=== PATIENT | male | born 1960 | race Caucasian/White ===

== ENCOUNTER 2020-04-10 13:59 | Emergency (ER) | payer OTHER, SELFPAY ==
--- NOTE | ~2020-04-10 | CT_ITS ---
EXAMINATION: CT abdomen pelvis wo con DATE: 04/10/2020 14:44 INDICATION: Left flank pain. History of renal stones. Aortic aneurysm. TECHNIQUE: Computed tomography (CT) of the abdomen and pelvis was performed without intravenous contr ast. The dose-length product was 353.52 mGy-cm. Automated exposure control and iterative reconstructi on technique were employed. COMPARISON: CT dated 08/12/2007 FINDINGS: Lung bases are unremarkable. No significant pleural or pericardial effusion. Elevated left diaphragm. There is a 6 mm proximal left ureteral stone with hydronephrosis and prominent perinephric and periur eteral edema, consistent with obstruction. There are small 2-3 mm nonobstructing left renal stones. The liver, spleen, pancreas, adrenal glands and right kidney are unremarkable. Gallbladder is present . Nonobstructive bowel gas pattern. There is an aortic aneurysm measuring 6.2 cm AP dimension with en dovascular stent extending above and below the aneurysm. Distal aspect of the stent extends into the common iliac arteries. Bowel gas pattern is nonobstructive. No abnormal pelvic masses or fluid collections. Colonic divertic ulosis without evidence for diverticulitis. IMPRESSION: 1. Proximal left ureteral stone measuring 6 mm with associated hydronephrosis, perinephric/periureter al edema, consistent with obstruction. 2: Nonobstructing left nephrolithiasis. 3: Infrarenal abdominal aortic aneurysm measuring 6.2 cm with endovascular stent traversing the aneur ysm above and below. Reviewed, dictated and finalized at location A. IMPRESSION: 1. Proximal left ureteral stone measuring 6 mm with associated hydronephrosis, perinephric/periureteral edema, consistent with obstruction. 2: Nonobstructing left nephrolithiasis. 3: Infrarenal abdominal aortic aneurysm measuring 6.2 cm with endovascular sten t traversing the aneurysm above and below.
--- NOTE | 2020-04-10 14:16 | ECG_ITS ---
Measurements Intervals [place] Rate: 74 P: 56 MO: 176 QRS: 39 QRSD: 104 T: 64 QT: 381 QTc: 424 Interpretive Statements SINUS RHYTHM BASELINE ARTIFACT- I, II, III, AVR, AVL, AVF NORMAL ECG Electronically Signed On 04-10-2020 17:47:32 CDT by Omari Hubbard D.O.
[2020-04-10] MEDS: KETOROLAC 30 MG/ML VIAL (*BKC) IV PUSH (14:26)
[2020-04-10] MEDS: SODIUM CHLORIDE 0.9% IV 1,000 ML 999 ML IV CONT (14:27)
[2020-04-10] MEDS: ONDANSETRON INJ 4 MG/2 ML VIAL IV PUSH (14:27)
[2020-04-10 14:31] VITALS: BP 142/86; PULSE 86; RESP 16; TEMP 36.8; O2SAT 99
[2020-04-10 14:33] LABS: Add Urine Microscopic? YES; Appearance Urine Sl Cloudy (Clear); Bilirubin Urine 1+ (Negative); Blood Urine 2+ (Negative); Color Urine Yellow (Yellow); Glucose Urine UA Negative (Negative); Ketones Urine Trace (Negative); Leukocyte Esterase Ur 1+ (Negative); Nitrate Urine Negative (Negative); Protein Urine 1+ (Negative); Specific Grav Ur 1.025 (1.010-1.020); Urobilinogen Urine 0.2 mg/dL (0.2-1.0); pH Urine 5.5 (5.0-8.0)
[2020-04-10 14:39] LABS: Bacteria Urine 1+ /hpf; Mucus Urine Few /lpf; Squamous Epithelial Cell Urine Few /hpf (Few); WBC Urine 16-20 /hpf (0-3)
--- NOTE | 2020-04-10 14:50 | ED.UPPEXIN ---
HPI - Extremity Injury (Upper) General Chief Complaint: Urogenital-Male Stated Complaint: abd pain L side Source: patient Mode of arrival: ambulatory Limitations: no limitations History of Present Illness HPI narrative: This is a 59-year-old gentleman presents to our emergency department with some left lower flank pain radiating to his left lower abdomen with decreased urinary flow, pain started around 2 in the morning intensified prior to arriving to the emergency department and rating his pain at a 10/10, currently there is no fever or chills, no chest pain no shortness of breath, currently no nausea vomiting no diarrhea constipation. The patient has a history of kidney stones in the past and was treated by urology group at [facility]. Patient also has a history of hypertension, history of AAA. MD complaint: injury to: left Onset (ago): hour(s) Related Data Home Medications Medication Instructions Recorded Confirmed apremilast [Otezla] 30 mg PO DAILY 04/10/20 04/10/20 calcipotriene 1 applic TOPICAL DAILY 04/10/20 04/10/20 clobetasol 1 applic TOPICAL DAILY 04/10/20 04/10/20 hydrochlorothiazide 25 mg PO DAILY 04/10/20 04/10/20 ketoconazole 1 applic TOPICAL DAILY 04/10/20 04/10/20 triamcinolone acetonide 1 applic TOPICAL DAILY 04/10/20 04/10/20 Allergies Allergy/AdvReac Type Severity Reaction Status Date / Time No Known Allergies Allergy Unknown Unverified 08/17/14 17:32 Review of Systems Review of Systems: All systems reviewed & are unremarkable except as noted in HPI and below PMFSH Past Medical History Medical History History of kidney stones HTN (hypertension) Psoriasis Exam Const: General: no acute distress and alert Orientation/consciousness: patient oriented x3 HENMT: Head: normal to inspection Eyes: Conjunctivae: conjunctivae normal Pupils: Equal, round and reactive pupils present Neck: Neck: normal visual inspection, no lymphadenopathy and no meningeal signs Lymphatic: no lymphadenopathy noted Chest: Chest palpation & inspection: normal inspection of the chest Resp: Effort & Inspection: normal respiratory effort Auscultation: clear to auscultation bilaterally Cardio: Rate: regular rate Rhythm: regular rhythm GI: GI Palp: Yes Soft to palpation and Yes Tenderness to palpation present (GI) : General: Yes Bladder palpation abnormal Urinary Catheter: Urinary Catheter: patent and draining Back/Spine/Pelvis: Back: CVA tenderness Other: left flank tenderness with palpation Skin: General skin exam: normal color Rashes: no rashes Neuro: General: patient oriented x3 and moves all extremities Extrem: General: normal to inspection Psych: Appearance: grossly normal Mental Status: mental status grossly normal Affect: normal affect Course Course Emergency Course: reassessment of patient appears more comfortable and states that after Toradol and morphine the patient's pain is rated at a 0/10, currently no fever no nausea or vomiting. Spoke to Urology on-call at [facility] and currently the patient is afebrile and pain is controlled and urology will see the patient as follow-up on an outpatient basis. Patient instructed to call on Sunday, if symptoms of fever or increasing pain advised to go directly to [place] for further evaluation and treatment. Vital Signs Vital signs: Vital Signs Temperature 36.8 C 04/10/20 14:31 Pulse Rate 86 04/10/20 14:31 Respiratory Rate 16 04/10/20 14:31 Blood Pressure 142/86 H 04/10/20 14:31 Pulse Oximetry 99 04/10/20 14:31 Temperature 36.8 C 04/10/20 14:31 Pulse Rate 86 04/10/20 14:31 Respiratory Rate 16 04/10/20 14:31 Blood Pressure 142/86 H 04/10/20 14:31 Pulse Oximetry 99 04/10/20 14:31 MDM - Extremity Injury (Upper) Lab Data Labs: Lab Results 04/10/20 Range/Units 14:25 Urine Color Yellow (Yellow) Urine Appearance Sl cloudy A
[2020-04-10] MEDS: MORPHINE SULFATE 4 MG/ML INJ IV PUSH (14:53)
[2020-04-10 14:58] LABS: Hematocrit 42.3 % (40.0-54.0); Hemoglobin 14.2 g/dL (14.0-18.0); Mean Corpuscular HGB Conc 33.6 g/dL (32.0-36.0); Mean Corpuscular Hemoglobin 31.7 pg (27.0-31.0); Mean Corpuscular Volume 94.4 fL (78.0-102.0); Mean Platelet Volume 9.1 fl (8.7-11.0); Platelet Count Result 306 K/mm3 (150-420); Red Blood Count 4.48 M/mm3 (4.70-6.10); Red Cell Distribution Width 12.3 % (11.6-14.4); White Blood Count 17.6 K/mm3 (4.8-10.8)
[2020-04-10 15:09] LABS: Lipase 41 U/L (73-393)
[2020-04-10 15:17] LABS: Alanine Aminotransferase 19 U/L (16-63); Albumin Level 3.6 g/dL (3.4-5.0); Alkaline Phosphatase 80 U/L (46-116); Anion Gap 14.7 mmol/L (7-16); Aspartate Amino Transferase 15 U/L (15-37); Bilirubin,Total 0.8 mg/dL (0.00-1.00); Blood Urea Nitrogen 20 mg/dL (7-18); Calcium 8.7 mg/dL (8.5-10.1); Carbon Dioxide 26 mmol/L (21-32); Chloride 99 mmol/L (98-108); Estimated Glomerular Filt Rate 57; Glucose 116 mg/dL (70-99); Lactic Acid Reflex 2.1 mmol/L (0.4-2.0); Osmolality Calculated 285 mOsm/kg (285-295); Potassium 3.7 mmol/L (3.5-5.1); Sodium 136 mmol/L (136-145); Total Protein 7.5 g/dL (6.4-8.2); Troponin I < 0.02 ng/mL (0.00-0.056)
--- NOTE | 2020-04-10 15:40 | PC.NURSE ---
[facility] CALLED FOR POSSIBLE TRANSFER
[2020-04-10 16:18] VITALS: BP 167/97; PULSE 90; O2SAT 96
--- NOTE | 2020-04-10 16:33 | PC.NURSE ---
SPOKE WITH PATIENT CONCERNING TRANSFER TO [facility] VS HOME WITH FOLLOW UP OUTPATIENT. PT STATES HE IS OK TO CALL ON SUNDAY AND GO HOME TONIGHT. PT ENCOURAGED TO GO TO [facility] IF HE GETS HOME AND FEELS HE IS GETTING WORSE.
[2020-04-10 16:35] LABS: Reflex Lactic Acid Yes or No No Lactic Reflex
== END 2020-04-10 16:34 | disposition home or self-care (01) ==
PROVIDERS: Emergency Provider Emergency Medicine
DX: N13.2 Hydronephrosis with renal and ureteral calculous obstruction (principal); I10 Essential (primary) hypertension; I71.4 Abdominal aortic aneurysm, without rupture
CPT/HCPCS: 36415; 74176; 80053; 81001; 83605; 83690; 84484; 85027; 93005; 96361; 96374; 96375; 99284; A9270; J1885; J2270; J2405; J7030

== ENCOUNTER 2020-04-12 11:07 | Observation (INO) | payer OTHER, SELFPAY ==
[2020-04-12] VITALS (9 sets, daily range): BP systolic 89–141; BP diastolic 61–124; PULSE 84–141; RESP 14–29; TEMP 36.4–38.3; O2SAT 94–100; BMI 29.7
--- NOTE | ~2020-04-12 | CT_ITS ---
EXAMINATION: CT abdomen pelvis wo con DATE: 04/12/2020 11:51 INDICATION: Left flank pain. History of stones and aortic aneurysm. TECHNIQUE: Computed tomography (CT) of the abdomen and pelvis was performed without intravenous contr ast. Automated exposure control and iterative reconstruction technique were employed. Exam dose: 108 9.39 mGy-cm total exam DLP. COMPARISON: None. FINDINGS: There is an approximately 6 x 7 mm calculus of the distal left ureter with associated moder ate left proximal hydroureteronephrosis as well as perinephric and periureteral stranding. There is an approximately 3 mm nonobstructing left renal calculus. No right ureteral or renal calculu s or hydronephrosis. The urinary bladder is unremarkable. The gallbladder is distended. No apparent gallstones are noted, but ultrasound would be more sensitiv e. No pericholecystic fluid or stranding. No bile duct or pancreatic duct dilatation. No hepatic or pancreatic, splenic, and adrenal or renal space-occupying mass lesion is evident on thi s limited noncontrast examination. Endovascular aorto-biiliac stent and up to 7.1 cm abdominal aortic aneurysm are again noted. Small fa t-containing left inguinal hernia. No intraperitoneal or retroperitoneal or pelvic mass lesion or ariella nopathy or ascites. Diverticulosis of the left colon; no CT evidence of diverticulitis. Normal appendix. There is a promi nent amount of fecal material in the right colon. No bowel obstruction, bowel wall thickening, pneuma tosis or intraperitoneal free air is detected. There is discoid atelectasis or scarring in the left lower lobe. No pericardial or pleural effusion. No suspicious osteolytic or osteoblastic lesions. IMPRESSION: 6 x 7 mm obstructing distal left ureteral calculus with moderate left proximal hydrouret eronephrosis Reviewed, dictated and finalized at [facility]. Reviewed, dictated and finalized at [facility]. IMPRESSION: 6 x 7 mm obstructing distal left ureteral calculus with moderate l eft proximal hydroureteronephrosis
--- NOTE | ~2020-04-12 | XR_ITS ---
EXAMINATION: XR retrograde pyelo w/stent LT EXAM DATE: 04/12/2020 14:42 INDICATION: Left-sided stent placement, retrograde for obstructing ureteral stone. TECHNIQUE: Fluoroscopy used during XR retrograde pyelo w/stent LT performed by Dr. Conrad Rich MD. The DAP for this procedure was 0.5 mGym2. Cine run(s) available for review. FINDINGS: Initially there was some narrowing at the distal aspect of the left ureter, but this did n ot appear fixed, dilated after the more distended mid and proximal ureteral system. There is mild lef t hydronephrosis. A left double-J ureteral stent was positioned. Correlate with procedure note. IMPRESSION: Fluoroscopy used during XR retrograde pyelo w/stent LT. Reviewed, dictated and finalized at [facility].
[2020-04-12] MEDS: SODIUM CHLORIDE 0.9% IV 1,000 ML 999 ML IV CONT (11:25)
[2020-04-12] MEDS: FAMOTIDINE 20 MG/2 ML VIAL IV PUSH ×2 (11:25→21:08)
[2020-04-12 11:39] LABS: Basophils Percent Auto 0.7 % (0.2-1.2); Hematocrit 43.9 % (42.0-52.0); Hemoglobin 14.2 g/dL (14.0-18.0); Immature Granulocyte Absolute 0.01 K/mm3 (0.00-0.031); Immature Granulocyte Percent A 0.7 % (0-0.5); Lymphocytes Absolute Auto 0.17 K/mm3 (0.9-3.2); Lymphocytes Percent Auto 12.4 % (18.3-44.2); Mean Corpuscular HGB Conc 32.3 g/dl (32-36); Mean Corpuscular Hemoglobin 31.4 pg (26-34); Mean Corpuscular Volume 97.1 fl (80-100); Monocytes Percent Auto 0.7 % (2.6-8.5); Neutrophils Absolute Auto 1.2 K/mm3 (1.3-6.7); Neutrophils Percent Auto 85.5 % (45.5-73.1); Platelet Count Result 167 k/mm3 (150-375); Red Blood Count 4.52 M/mm3 (4.6-6.20); Red Cell Distribution Width 12.8 % (11.5-14.5)
[2020-04-12 11:42] LABS: White Blood Count 1.4 K/mm3 (4.5-10.0)
[2020-04-12 11:49] LABS: Estimated CRCL calculation 58 ml/min; Estimated Glomerular Filt Rate 45
[2020-04-12 11:50] LABS: INR 1.2
[2020-04-12 11:51] LABS: Partial Thromboplastin Time 26.4 SECONDS (22.3-36.8)
[2020-04-12 12:00] LABS: Platelet Estimate Adequate (Adequate)
[2020-04-12 12:10] LABS: Albumin Level 4.2 g/dL (3.5-5.1); Alkaline Phosphatase 114 U/L (38-126); Aspartate Amino Transferase 25 U/L (17-59); Blood Urea Nitrogen 21 mg/dL (9-20); Calcium 9.2 mg/dL (8.4-10.2); Carbon Dioxide 22 mmol/L (22-30); Chloride 102 mmol/L (98-107); Estimated CRCL calculation 58 ml/min; Estimated Glomerular Filt Rate 45; Glucose 101 mg/dL (75-110); Potassium 3.5 mmol/L (3.4-5.0); Sodium 138 mmol/L (137-145)
[2020-04-12 12:13] LABS: Troponin I < 0.012 ng/mL (0.000-0.034)
[2020-04-12 12:16] LABS: Alanine Aminotransferase 23 U/L (4-50)
[2020-04-12 12:43] LABS: CRP 36.2 mg/dL (<1.0)
[2020-04-12] MEDS: LACTATED RINGERS 1,000 ML 999 ML IV CONT (12:51)
[2020-04-12 12:52] LABS: Add Urine Microscopic? YES; Amorphous Sediment Urine Few; Appearance Urine Clear (Clear); Bacteria Urine Trace /hpf; Bilirubin Urine Negative (Negative); Blood Urine 3+ (Negative); Color Urine Yellow (Yellow); Glucose Urine UA Negative (Negative); Ketones Urine Trace mg/dL (Negative); Leukocyte Esterase Ur Negative LEU/UL (Negative); Mucus Urine Rare /lpf; Nitrate Urine Negative (Negative); Protein Urine 3+ mg/dL (Negative); Specific Grav Ur 1.029 (1.001-1.035); Squamous Epithelial Cell Urine Rare /hpf (Few); Urobilinogen Urine Negative mg/dL (<2.0)
--- NOTE | 2020-04-12 12:53 | WPDANESEPPF ---
Anes - Initial Pre Proc Eval Procedure: Operation Date: 04/12/20 15:30 Proposed Procedures p CYSTOSCOPY,LEFT STENT PLACEMENT - Conrad Rich MD Date/Time: 04/12/20 12:53 Pre Op Diagnosis: KIDNEY STONE Patient Data Age: 59 Gender: M Height: 1.83 m Weight: 107.6 kg Last Vital Signs Temp 37.7 C H 04/12/20 12:31 Pulse 108 H 04/12/20 12:31 Resp 20 04/12/20 12:31 BP 110/66 04/12/20 12:31 Pulse Ox 98 04/12/20 11:11 Allergies Allergy/AdvReac Type Severity Reaction Status Date / Time No Known Allergies Allergy Unknown Unverified 04/12/20 14:12 Home Medications Medication Instructions Recorded Confirmed Type apremilast [Otezla] 30 mg PO DAILY 04/10/20 04/10/20 History calcipotriene 1 applic TOPICAL DAILY 04/10/20 04/10/20 History clobetasol 1 applic TOPICAL DAILY 04/10/20 04/10/20 History hydrochlorothiazide 25 mg PO DAILY 04/10/20 04/10/20 History ketoconazole 1 applic TOPICAL DAILY 04/10/20 04/10/20 History sulfamethoxazole-trimethoprim 1 tablet PO Q12H #14 tablet 04/10/20 Rx [Bactrim DS] triamcinolone acetonide 1 applic TOPICAL DAILY 04/10/20 04/10/20 History hydrocodone 7.5 mg-acetaminophen 1 tablet PO Q6H PRN #20 tablet 04/11/20 Rx 325 mg tablet Laboratory Tests 04/12/20 04/12/20 04/12/20 11:28 11:28 11:28 WBC 1.4 K/mm3 L* K/mm3 (4.5-10.0) RBC 4.52 M/mm3 L M/mm3 (4.6-6.20) Hgb 14.2 g/dL g/dL (14.0-18.0) Hct 43.9 % % (42.0-52.0) MCV 97.1 fl fl (80-100) MCH 31.4 pg pg (26-34) MCHC 32.3 g/dl g/dl (32-36) RDW 12.8 % % (11.5-14.5) Plt Count 167 k/mm3 k/mm3 (150-375) MPV 10.0 fl fl (7.4-10.4) Immature Gran % (Auto) 0.7 % H % (0-0.5) Neut % (Auto) 85.5 % H % (45.5-73.1) Lymph % (Auto) 12.4 % L % (18.3-44.2) [place] % (Auto) 0.7 % L % (2.6-8.5) Eos % (Auto) 0.0 % % (0-4.4) Baso % (Auto) 0.7 % % (0.2-1.2) Lymph # (Auto) 0.17 K/mm3 L K/mm3 (0.9-3.2) [place] # (Auto) 0.0 K/mm3 L K/mm3 (0.1-0.6) Eos # (Auto) 0.0 K/mm3 K/mm3 (0-0.3) Baso # (Auto) 0.0 K/mm3 K/mm3 (0.0-0.1) Abs Immat Gran (auto) 0.01 K/mm3 K/mm3 (0.00-0.031) Absolute Neuts (auto) 1.2 K/mm3 L K/mm3 (1.3-6.7) Absolute Nucleated RBC 0.0 K/mm3 K/mm3 (0.0-0.012) Nucleated RBC % 0.0 % % (0.0-0.2) Platelet Estimate Adequate (Adequate) PT 15.0 Seconds H Seconds (11.1-14.7) INR 1.2 APTT 26.4 SECONDS SECONDS (22.3-36.8) Sodium 138 mmol/L mmol/L (137-145) Potassium 3.5 mmol/L mmol/L (3.4-5.0) Chloride 102 mmol/L mmol/L (98-107) Carbon Dioxide 22 mmol/L mmol/L (22-30) BUN 21 mg/dL H mg/dL (9-20) Creatinine 1.60 mg/dL H mg/dL (0.7-1.3) Estim Creat Clear Calc 58 ml/min ml/min Estimated GFR 45 L (59 - ) Glucose 101 mg/dL mg/dL (75-110) Lactic Acid Calcium 9.2 mg/dL mg/dL (8.4-10.2) Total Bilirubin 1.0 mg/dL mg/dL (0.2-1.3) AST 25 U/L U/L (17-59) ALT 23 U/L U/L (4-50) Alkaline Phosphatase 114 U/L U/L (38-126) Troponin I C-Reactive Protein 36.2 mg/dL H mg/dL (<1.0) Total Protein 8.0 g/dL g/dL (6.3-8.2) Albumin 4.2 g/dL g/dL (3.5-5.1) Urine Color Urine Appearance Urine pH Ur Specific [place] Urine Protein Urine Glucose (UA) Urine Ketones Ur Blood (Man) Urine Nitrate Urine Bilirubin Urine Urobilinogen Leukocyte Esterase Rfl Urine RBC Urine WBC Ur Squamous Epith Cells Amorphous Sediment Urine Bact
--- NOTE | 2020-04-12 13:02 | ED.EXTPRO ---
HPI - Extremity Problem General Chief complaint: Extremity Problem,Nontraumatic Stated complaint: KIDNEY STONE Time Seen by Provider: 04/12/20 11:08 Source: patient Mode of arrival: ambulatory Limitations: no limitations History of Present Illness HPI Narrative: Patient is a 59-year-old male who presents to emergency department for evaluation pain fever chills patient was recently diagnosed with kidney stone urinary tract infection and has gradually worsened since going home from outside hospital patient presents with fever chills body aches and rigors patient does have history of psoriatic arthritis and is currently on immunosuppression. Patient denies vomiting diarrhea hematuria. Related Data Home Medications Medication Instructions Recorded Confirmed apremilast [Otezla] 30 mg PO DAILY 04/10/20 04/10/20 calcipotriene 1 applic TOPICAL DAILY 04/10/20 04/10/20 clobetasol 1 applic TOPICAL DAILY 04/10/20 04/10/20 hydrochlorothiazide 25 mg PO DAILY 04/10/20 04/10/20 ketoconazole 1 applic TOPICAL DAILY 04/10/20 04/10/20 triamcinolone acetonide 1 applic TOPICAL DAILY 04/10/20 04/10/20 Allergies Allergy/AdvReac Type Severity Reaction Status Date / Time No Known Allergies Allergy Unknown Unverified 08/17/14 17:32 Review of Systems Review of Systems: All systems reviewed & are unremarkable except as noted in HPI and below PMFSH Past Medical History Medical History Aneurysm AAA REPAIR History of kidney stones HTN (hypertension) Obesity Psoriasis Psoriatic arthritis Exam Narrative: Exam Narrative: GENERAL: Ill-appearing, well-nourished, and in acute pain distress HEAD: Normocephalic, atraumatic. EYES: PERRLA and EOMI. ENT: Nares clear, no rhinorrhea or epistaxis. Mucous membranes moist. Oropharynx without tonsillar hypertrophy exudate or other lesions. NECK: Supple. No adenopathy or masses. No carotid bruits or JVD CHEST: Clear to auscultation. No respiratory distress. No wheezes rales or rhonchi HEART: Tachycardic rate and and regular rhythm. No murmur heard. Normal peripheral pulses. ABDOMEN: Soft, nontender, nondistended EXTREMITIES: Normal range of motion. No edema. SKIN: Warm, dry, no rash. NEURO: No focal deficits. Alert and oriented x3. Cranial nerves II through XII grossly intact PSYCH: Normal mood and affect. Course Course Emergency Course: Patient in the room at this time aware of case findings treatment plan and diagnosis agreeing to stay in hospital aware of discussions with urology and hospitalist and was evaluated by urology in the emergency department Consultations Consultation #1: Spoke with urologist and hospitalist regarding this patient plan will be for patient to be taken to the OR for stent. Patient will be placed on med telemetry floor per request of hospitalist service Date: 04/12/20 Time: 13:29 Vital Signs Vital signs: Vital Signs Temperature 100.9 F H 04/12/20 11:11 Pulse Rate 141 H 04/12/20 11:11 Respiratory Rate 29 H 04/12/20 11:11 Blood Pressure 141/124 H 04/12/20 11:11 Pulse Oximetry 98 04/12/20 11:11 Temperature 99.9 F H 04/12/20 12:31 Pulse Rate 108 H 04/12/20 12:31 Respiratory Rate 20 04/12/20 12:31 Blood Pressure 110/66 04/12/20 12:31 Pulse Oximetry 98 04/12/20 11:11 MDM - Extremity (Nontraumatic) MDM Narrative Medical decision making narrative: Patient presenting with sepsis was hydrated per sepsis protocol and given Zosyn for antibiotics found to have urinary tract infection secondary to obstructing kidney stone. Will be admitted to the hospitalist service with plans to go to the operative suite for stent placement today. Patient with interventions feeling much better at this time with normalizing vital signs and hemodynamically stable Lab Data Result diagrams: 04/12/20 11:28 04/12/20 11:36 Labs: Lab Results 04/12/20 04/12/20 04/12/20 Range/Units 1
--- NOTE | 2020-04-12 13:33 | WPDURCON ---
Assessment and Plan Assessment and plan (1) Left ureteral stone: Code(s): N20.1 - Calculus of ureter Status: Acute Assessment and Plan: he will be taken to the operating room today for cystoscopy and left ureteral stent placement he and his understand the risk of bleeding, infection, damage to the urinary tract, inability to place the stent. They understand that I will not be removing the stone at this time. He will be admitted postoperatively for broad-spectrum antibiotics. Definitive stone management as an outpatient once the acute situation resolves. (2) Hydronephrosis: Code(s): N13.30 - Unspecified hydronephrosis Status: Acute (3) Abnormal urinalysis: Code(s): R82.90 - Unspecified abnormal findings in urine Status: Acute (4) Sepsis: Code(s): A41.9 - Sepsis, unspecified organism Status: Acute Urology Consult Note HPI Date Seen: 04/12/20 Primary Care Provider: Huseyin Levy MD Consult Narrative Narrative: Cody Holt Jr. is a 59 year old male Seen at the request of the emergency room here at [facility]. He has seen my partner in the past and underwent ureteroscopic stone extraction. He has not had stones in sometime. He was in the ER in [facility] over the weekend. He was diagnosed with a 7 millimeter ureteral stone. He was afebrile at the time and without symptoms your urinary tract infection. He was very motivated to go home. He went home and had outpatient urologic follow-up schedule today. However he returns to the ER with fevers up to 102 and rigors. He also endorses nausea without vomiting. his is present in the room with him and cooperate this history as well. He will be taken emergently to the operating room this afternoon for a left ureteral stent placement. Review of Systems Review of Systems: All systems reviewed & are unremarkable except as noted in HPI and below PMFSH Past Medical History Medical History Aneurysm AAA REPAIR History of kidney stones HTN (hypertension) Obesity Psoriasis Psoriatic arthritis Meds Home Medications and Allergies Home Medications Medication Instructions Recorded Confirmed Type apremilast [Otezla] 30 mg PO DAILY 04/10/20 04/10/20 History calcipotriene 1 applic TOPICAL DAILY 04/10/20 04/10/20 History clobetasol 1 applic TOPICAL DAILY 04/10/20 04/10/20 History hydrochlorothiazide 25 mg PO DAILY 04/10/20 04/10/20 History ketoconazole 1 applic TOPICAL DAILY 04/10/20 04/10/20 History sulfamethoxazole-trimethoprim 1 tablet PO Q12H #14 tablet 04/10/20 Rx [Bactrim DS] triamcinolone acetonide 1 applic TOPICAL DAILY 04/10/20 04/10/20 History hydrocodone 7.5 mg-acetaminophen 1 tablet PO Q6H PRN #20 tablet 04/11/20 Rx 325 mg tablet Allergies Allergy/AdvReac Type Severity Reaction Status Date / Time No Known Allergies Allergy Unknown Unverified 08/17/14 17:32 Vital Signs Vital Signs - 24 hr 04/12/20 11:11 04/12/20 12:31 Temperature 100.9 F H 99.9 F H Pulse Rate 141 H 108 H Respiratory Rate 29 H 20 Blood Pressure 141/124 H 110/66 Pulse Oximetry 98 Exam Const: General: comfortable and in distress HENMT: Mouth: Yes moist mucous membranes abnormal Eyes: General: appearance normal, both eyes and all related structures Neck: Neck: supple Resp: Effort & Inspection: normal respiratory effort Cardio: Rate: regular rate Rhythm: regular rhythm GI: Inspection: non-distended Other: Left flank pain no Skin: General skin exam: normal color Other: appears sweaty Neuro: Speech: normal speech Extrem: General: normal to inspection Psych: Speech and movement: Normal speech and movement present Affect: normal affect Results Labs CBC & Chem 7: 04/12/20 11:28 04/12/20 11:36 Labs: Short CBC 04/12/20 Range/Units 11:28 WBC 1.4 L* (4.5-10.0) K/mm3 Hgb 14
[2020-04-12] MEDS: LACTATED RINGERS 1,000 ML 30 ML IV CONT (13:55)
[2020-04-12] MEDS: LIDOCAINE HCL 2% GEL UROJET 10 ML PKG MUCOUS MEM (14:28)
[2020-04-12 15:32] LABS: Reflex Lactic Acid Yes or No Add Lactic
--- NOTE | 2020-04-12 15:55 | ADMGEN ---
This patient, Cody Holt Jr., was admitted to [facility] Surg Room 312-01. Patient/family oriented to hospital policies and general routines including ID bracelet, bed and alarms, visiting hours, pain management, procedures, bathroom and other care routines, personal items, smoking policy, room service/diet, and visiting hours. Valuables list has been completed. Information on how to activate the Rapid Response Team has been discussed. Patient/Family are encouraged to report perceived risks to care and to ask questions if they do not understand what they are told or what they should do.
[2020-04-12] MEDS: MORPHINE SULFATE 4 MG/ML INJ IV PUSH ×2 (16:18→22:52)
[2020-04-12] MEDS: LACTATED RINGERS 1,000 ML 125 ML IV CONT (16:19)
--- NOTE | 2020-04-12 16:23 | P.OP_ITS ---
Procedure Note - Detailed Date of procedure: 04/12/20 Pre-op diagnosis: KIDNEY STONE Left ureteral stone, urosepsis. Post-op diagnosis: same Procedure performed: Cystoscopy, left retrograde pyelogram, left ureteral stent placement. Description of procedure: He was correctly identified and informed consent was obtained. He is brought to the operating room. He is given general anesthesia. He was prepped and draped sterile fashion. He was on appropriate antibiotics. Time-out performed. Cystoscopy revealed a normal-appearing bladder. His prostate was nonobstructive. Bladder was without significant abnormalities or tumors. I did a gentle retrograde pyelogram on the left. It outlined the mid to distal ureteral stone. It hydronephrosis proximal to this stone. I placed a Glidewire into the kidney. Purulence was seen to come from the ureter once the wire was placed. 4.8 variable length stent was placed. The proximal coil was in the upper pole kidney. This distal coil was in bladder. The bladder was drained. He was awakened and transferred to PACU in stable condition Implants: 4.8 [place] variable length stent. Anesthesia: GLMA Surgeon: Conrad Rich MD Estimated blood loss (mL): 0 Drains: Yes ( Ureteral stent and [place] catheter) Pathology: none sent Complications: No immediate complications Condition: stable Disposition: PACU
[2020-04-12 16:32] LABS: Lactic Acid 1.9 mmol/L (0.7-2.1)
--- NOTE | 2020-04-12 19:30 | PM.IMHP ---
H&P: HPI History of Present Illness Chief complaint: Fever and kidney stone. Narrative: Cody Holt Jr. is a 59-year-old male with history of kidney stones, psoriatic arthritis on DMARDs, and hypertension who presented to the emergency department earlier this morning from home for evaluation of fever associated with known kidney stone. [place] [facility] [place] with left flank pain where he was found to have a proximal left ureteral stone measuring approximately 6 millimeters with associated hydronephrosis, perinephric andperiureteral edema, consistent with obstruction. He was discharged home with prescriptions for Percocet and Bactrim, with instructions to follow-up with Dr. Rich today. Throughout the weekend he has continued to feel poorly, with intermittent flank pain and significant nausea and dry heaves. He spoke with his primary care provider who changed his oxycodone to hydrocodone, which did seem to help somewhat, although his oral intake has not been that good. Additionally, he reports sweats and what sounds like pretty significant rigors this morning with worsening pain and thus he came in via ambulance for evaluation. He is now status post cystoscopy with left ureteral stent placement per Dr. Rich. At this time, his pain seems to be a bit better controlled and his nausea is much improved. In fact he was able to eat dinner without issue. Review of Systems Review of Systems: Narrative: Twelve systems were reviewed with pertinent positives and negatives as per HPI. No recent cold or flu symptoms. Since the COVID outbreak, he has been taking half dose Otezla as to lessen his chance of immunosuppression. Since that time, he has had increasing arthritic pains in his hands and some increase in his psoriatic plaques on his lower extremities but nothing significant. He has never been diagnosed with COPD or emphysema but is wheezing on exam. He tells me that he has a chronic, smoker's cough and more recently his sputum output has been a bit darker than usual. He denies sick contacts and recent travel. He denies chest pain. No diarrhea and in fact he has had some mild constipation due to the pain medications. Except as documented, all other systems were reviewed and are negative. [facility] Past Medical History Medical History (Updated 04/13/20 @ 00:48 by Zarina Antoine PA-C) Essential hypertension History of kidney stones Immunocompromised state due to drug therapy Patient takes Otezla for psoriatic arthritis. Psoriasis Psoriatic arthritis Tobacco dependence Surgical History Surgical History (Updated 04/12/20 @ 14:18 by Zarina Antoine PA-C) History of ankle surgery ORIF left ankle fracture. History of repair of aneurysm of abdominal aorta using endovascular stent graft CT of the abdomen and pelvis take 04/12/2020 showed an up to 7.1 centimeter abdominal aortic aneurysm with endovascular aorto-biiliac stent. Status post cystoscopy with ureteral stent placement (~08/2007) Family History Family History (Updated 04/13/20 @ 00:45 by Zarina Antoine PA-C) Mother Cancer of kidney Sibling Congestive heart failure Social History Social History (Updated 04/13/20 @ 00:46 by Zarina Antoine PA-C) Social History: The patient lives in [place], [place] with his . He has no children. 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 He has smoked between 0.5 and 1 packs of cigarettes per day for at least 30 years. He denies alcohol and illicit substance abuse. He designates his , Aundrea, as his surrogate decision maker and he wishes to be a full code. Smoking packs per day: 0.5 Smoking cigarettes per day: 10.0 Years smoked: 33 Smoking pack-years: 16.50 Smoking status: Current every day smoker Tobacco type: cigarettes Second hand tobacco smoke exposure: Yes Alcohol intake: never Substance
[2020-04-13] MEDS: LACTATED RINGERS 1,000 ML 100 ML IV CONT ×3 (01:06→23:03)
[2020-04-13 02:06] VITALS: BP 100/69; PULSE 69; RESP 18; TEMP 36.4; O2SAT 96
[2020-04-13 05:59] VITALS: BP 107/66; PULSE 68; RESP 18; TEMP 36.4; O2SAT 97
[2020-04-13 06:09] LABS: Basophils Percent Auto 0.2 % (0.2-1.2); Eosinophils Percent Auto 0.1 % (0-4.4); Hematocrit 34.3 % (42.0-52.0); Hemoglobin 11.3 g/dL (14.0-18.0); Immature Granulocyte Absolute 0.13 K/mm3 (0.00-0.031); Immature Granulocyte Percent A 1.2 % (0-0.5); Immature Platelet Fraction Pct 3.7 % (0.9-11.2); Lymphocytes Absolute Auto 0.57 K/mm3 (0.9-3.2); Lymphocytes Percent Auto 5.3 % (18.3-44.2); Mean Corpuscular HGB Conc 32.9 g/dl (32-36); Mean Corpuscular Hemoglobin 31.6 pg (26-34); Mean Corpuscular Volume 95.8 fl (80-100); Mean Platelet Volume 10.9 fl (7.4-10.4); Monocytes Absolute Auto 0.7 K/mm3 (0.1-0.6); Monocytes Percent Auto 6.3 % (2.6-8.5); Neutrophils Absolute Auto 9.4 K/mm3 (1.3-6.7); Neutrophils Percent Auto 86.9 % (45.5-73.1); Platelet Count Result 138 k/mm3 (150-375); Red Blood Count 3.58 M/mm3 (4.6-6.20); Red Cell Distribution Width 13.1 % (11.5-14.5); White Blood Count 10.8 K/mm3 (4.5-10.0)
[2020-04-13 06:18] LABS: Blood Urea Nitrogen 25 mg/dL (9-20); Calcium 8.2 mg/dL (8.4-10.2); Carbon Dioxide 25 mmol/L (22-30); Chloride 105 mmol/L (98-107); Estimated CRCL calculation 58 ml/min; Estimated Glomerular Filt Rate 57; Glucose 105 mg/dL (75-110); Magnesium 2.2 mg/dL (1.6-2.3); Potassium 3.7 mmol/L (3.4-5.0); Sodium 136 mmol/L (137-145)
--- NOTE | 2020-04-13 08:48 | WPDUROPN2 ---
Progress Note: A&P Assessment and Plan (1) Left ureteral stone: Code(s): N20.1 - Calculus of ureter Status: Acute Assessment and Plan: Will plan to do ureteroscopy with left ureteral stone extraction as an outpatient after infection is cleared and a repeat urine culture is negative. No further evaluation at this time. (2) Sepsis: Code(s): A41.9 - Sepsis, unspecified organism Status: Acute Assessment and Plan: Continue IV antibiotics, tailor to culture results. (3) Urinary tract infection: Code(s): N39.0 - Urinary tract infection, site not specified Status: Acute Assessment and Plan: Plan to remove alfredo prior to discharge and do a voiding trial. Subjective Subjective Date/Time Seen: 04/13/20 08:48 Patient doing much better today s/p Cystoscpy left stent placement. He is afebrile, minimal to no pain, urine is clearing in alfredo bag. Review of Systems Cardiovascular: Cardiovascular: Denies chest pain Respiratory: Respiratory: Reports no additional respiratory complaints Gastrointestinal: Gastrointestinal: Denies abdominal pain, Denies nausea and Denies vomiting Genitourinary: Genitourinary: Denies hematuria and Denies flank pain Exam Resp: Effort & Inspection: normal respiratory effort Cardio: Rate: regular rate GI: GI Palp: Yes Tenderness to palpation present (GI) Urinary Catheter: Urinary Catheter: patent and draining, urine clear and urine dark Objective Data Vital Signs Vital Signs: Vital Signs - 24 hr 04/12/20 11:11 04/12/20 12:31 04/12/20 14:08 Temperature 100.9 F H 99.9 F H 98.2 F Pulse Rate 141 H 108 H 97 Respiratory Rate 29 H 20 20 Blood Pressure 141/124 H 110/66 102/66 Pulse Oximetry 98 96 04/12/20 14:45 04/12/20 14:57 04/12/20 15:12 Temperature 97.6 F Pulse Rate 89 94 101 H Respiratory Rate 14 20 20 Blood Pressure 89/61 L 100/66 97/66 L Pulse Oximetry 99 100 96 04/12/20 15:27 04/12/20 16:00 04/12/20 22:00 Temperature 97.5 F L 98.6 F Pulse Rate 100 99 84 Respiratory Rate 20 18 18 Blood Pressure 104/76 110/70 110/72 Pulse Oximetry 94 95 96 04/13/20 02:06 04/13/20 05:59 Temperature 97.6 F 97.5 F L Pulse Rate 69 68 Respiratory Rate 18 18 Blood Pressure 100/69 107/66 Pulse Oximetry 96 97 Intake/Output Intake/Output: Intake & Output 04/10/20 04/11/20 04/12/20 04/13/20 23:59 23:59 23:59 23:59 Intake Total 1900 1580 Output Total 350 1100 Balance 1550 480 Meds/Results Medications: Active Medications Generic Name Dose Route Start Last Admin Trade Name Freq PRN Reason Stop Dose Admin Acetaminophen 650 mg 04/13/20 08:20 Tylenol Tablet PO Q6H PRN Mild Pain (1-3) or Fever Hydrocodone Bitart/Acetaminophen 1 tab 04/13/20 00:49 [place] 7.5-325 Mg PO Q6H PRN pain Clobetasol Propionate 1 applic 04/13/20 09:00 Temovate 0.05% Cream TOPICAL DAILY [facility] Famotidine 20 mg 04/12/20 21:00 04/12/20 21:08 Pepcid Iv IV PUSH 20 mg Q12HR LUDMLIA Administration Hydromorphone HCl 0.25 mg 04/12/20 14:25 Dilaudid Inj IV PUSH Q5M PRN Pain Lactated Ringer's 1,000 mls @ 100 mls/hr 04/12/20 13:35 04/13/20 05:42 Lr - Lactated Ringers Iv IV CONT 100 mls/hr .Q10H LUDMILA Infusion Piperacillin/Tazobactam/Dextrose 3.375 gm in 50 mls @ 100 mls/hr 04/12/20 18:00 04/13/20 06:31 Zosyn 3.375 Gm/D5w 50ml Pm IVPB Infused Q6H LUDMILA Infusion Lactated Ringer's 1,000 mls @ 30 mls/hr 04/12/20 14:25 04/12/20 15:30 Lr - Lactated Ringers Iv IV CONT Infused .Q24H LUDMILA Infusion Lactated Ringer's 1,000 mls @ 30 mls/hr 04/12/20 14:25 Lr - Lactated Ringers Iv IV CONT .Q24H [facility] Miconazole Nitrate 1 applic 04/13/20 09:00 Miconazole Nitrate 2% Cream TOPICAL DAILY [facility] Morphine Sulfate 4 mg 04/12/20 13:32 04/12/20 22:52 Morphine Sulfate Inj IV PUSH 4 mg Q2H PRN Administration Pain Rated 7-10 Non-Formulary Medica
[2020-04-13] MEDS: FAMOTIDINE 20 MG/2 ML VIAL IV PUSH ×2 (08:58→20:38)
[2020-04-13 10:00] VITALS: BP 127/74; PULSE 74; RESP 18; TEMP 36.5; O2SAT 97
[2020-04-13] MEDS: TRIAMCINOLONE ACET 0.1% CREAM 15 GM TUBE 1 APPLIC TOPICAL (12:27)
[2020-04-13] MEDS: MICONAZOLE NITRATE 2% CREAM 30 GM TUBE 1 APPLIC TOPICAL (13:54)
[2020-04-13 14:00] VITALS: BP 140/81; PULSE 78; RESP 16; TEMP 36.7; O2SAT 96
--- NOTE | 2020-04-13 16:17 | PM.IMPN ---
Progress Note: A&P Assessment and Plan (1) Sepsis: Code(s): A41.9 - Sepsis, unspecified organism Status: Acute Assessment and Plan: Present on admission and supported by fever, tachycardia, neutropenia, and elevated lactic acid level. He received IV fluid rehydration emergency department, with repeat lactic acid level returning to normal. Blood NG and urine cultures still pending. (2) Left ureteral stone: Code(s): N20.1 - Calculus of ureter Status: Acute Assessment and Plan: CT shows a 6 x 7 millimeter obstructing distal left ureteral calculus with moderate left proximal hydroureteronephrosis. Status post cystoscopy and left ureteral stent placement per Dr. Rich. 04/12 (3) Hydroureteronephrosis: Code(s): N13.30 - Unspecified hydronephrosis Status: Acute Assessment and Plan: Plan is as detailed above. (4) Immunocompromised state due to drug therapy: Code(s): Z79.899 - Other penitentiary (current) drug therapy Status: Acute Assessment and Plan: Otezla currently on hold. (5) Psoriatic arthritis: Code(s): L40.50 - Arthropathic psoriasis, unspecified Status: Acute Assessment and Plan: As above, Otezla on hold. Continue topical medications for associated psoriasis. (6) Essential hypertension: Code(s): I10 - Essential (primary) hypertension Status: Acute Assessment and Plan: Blood pressures are stable but will be monitored closely due to sepsis. His home medications,HCTZ, will be reviewed and resumed as appropriate once they are confirmed. (7) Tobacco dependence: Code(s): F17.200 - Nicotine dependence, unspecified, uncomplicated Status: Acute Assessment and Plan: Approximately 4 minutes was spent after admission counseling the patient with regards to smoking cessation. Both he and his smoke, and he feels that they both could quit together. He has not had a cigarette for 4 days due to feeling poorly, and declines the need for nicotine patch. Subjective Date/time seen: 04/13/20 16:17 Interval history: Date of visit 04/13 . 59-year-old white male psoriatic arthritis history of hypertension and history of previous nephrolithiasis presented with right-sided flank pain and fever. Found to have mid left ureteral stone with urinary tract infection. Feels better after stent was placed. No more fever no nausea. Exam Narrative: Exam Narrative: Blood pressure 148/80 pulse is 76 afebrile with T-max of 38.3? General: Well-developed, male currently in no distress HEENT: . PERRL, Sclerae anicteric. . Oropharynx clear. Neck: Supple. Respiratory: Lungs are clear to auscultation bilaterally. Cardiovascular: Regular rate and rhythm with S1-S2. Gastrointestinal: Abdomen is soft and protuberant with positive bowel sounds. He is tender to palpation in the left flank and groin. No significant CVA tenderness. Genitourinary: [place] catheter draining slightly cloudy lm colored urine. Skin: Warm and slightly moist. Evidence of psoriatic plaques and discoloration. Extremities: No significant edema. Radial and pedal pulses intact. Neurological: Alert. Cranial nerves 2-12 are grossly intact. No gross focal deficits to casual conversation. Psychiatric: Pleasant and cooperative with normal mood and affect. Judgment and insight intact. Objective Data Vital Signs Vital Signs: Vital Signs - 24 hr 04/12/20 22:00 04/13/20 02:06 04/13/20 05:59 Temperature 37.0 C 36.4 C 36.4 C L Pulse Rate 84 69 68 Respiratory Rate 18 18
[2020-04-13] MEDS: ENOXAPARIN 40 MG/0.4 ML SYRINGE SUB-Q (17:33)
[2020-04-13 18:00] VITALS: BP 123/69; PULSE 78; RESP 18; TEMP 36.7; O2SAT 98
[2020-04-13] MEDS: MORPHINE SULFATE 4 MG/ML INJ IV PUSH (21:51)
[2020-04-13 22:00] VITALS: BP 139/71; PULSE 78; RESP 20; TEMP 36.2; O2SAT 98
[2020-04-14 05:44] LABS: Basophils Absolute Auto 0.1 K/mm3 (0.0-0.1); Basophils Percent Auto 0.5 % (0.2-1.2); Eosinophils Absolute Auto 0.1 K/mm3 (0-0.3); Eosinophils Percent Auto 0.9 % (0-4.4); Hematocrit 33.2 % (42.0-52.0); Immature Granulocyte Absolute 0.07 K/mm3 (0.00-0.031); Immature Granulocyte Percent A 0.6 % (0-0.5); Lymphocytes Absolute Auto 1.29 K/mm3 (0.9-3.2); Lymphocytes Percent Auto 11.7 % (18.3-44.2); Mean Corpuscular HGB Conc 33.1 g/dl (32-36); Mean Corpuscular Hemoglobin 31.3 pg (26-34); Mean Corpuscular Volume 94.6 fl (80-100); Mean Platelet Volume 10.8 fl (7.4-10.4); Monocytes Absolute Auto 0.8 K/mm3 (0.1-0.6); Monocytes Percent Auto 7.1 % (2.6-8.5); Neutrophils Absolute Auto 8.7 K/mm3 (1.3-6.7); Neutrophils Percent Auto 79.2 % (45.5-73.1); Platelet Count Result 165 k/mm3 (150-375); Red Blood Count 3.51 M/mm3 (4.6-6.20); Red Cell Distribution Width 13.2 % (11.5-14.5)
[2020-04-14 06:00] VITALS: BP 141/74; PULSE 76; RESP 20; TEMP 36.9; O2SAT 97
[2020-04-14 06:02] LABS: Blood Urea Nitrogen 28 mg/dL (9-20); Calcium 8.3 mg/dL (8.4-10.2); Carbon Dioxide 30 mmol/L (22-30); Chloride 104 mmol/L (98-107); Estimated CRCL calculation 74 ml/min; Estimated Glomerular Filt Rate > 60; Glucose 91 mg/dL (75-110); Potassium 3.2 mmol/L (3.4-5.0); Sodium 136 mmol/L (137-145)
[2020-04-14 08:00] VITALS: PULSE 76; RESP 20; O2SAT 97
[2020-04-14] MEDS: ENOXAPARIN 40 MG/0.4 ML SYRINGE SUB-Q (09:44)
[2020-04-14] MEDS: MICONAZOLE NITRATE 2% CREAM 30 GM TUBE 1 APPLIC TOPICAL (09:45)
[2020-04-14] MEDS: FAMOTIDINE 20 MG/2 ML VIAL IV PUSH ×2 (09:45→21:31)
[2020-04-14] MEDS: TRIAMCINOLONE ACET 0.1% CREAM 15 GM TUBE 1 APPLIC TOPICAL (09:46)
[2020-04-14] MEDS: POTASSIUM CHLORIDE 20 MEQ TABLET 40 MEQ PO (09:52)
[2020-04-14] MEDS: MORPHINE SULFATE 4 MG/ML INJ IV PUSH (09:53)
--- NOTE | 2020-04-14 10:44 | WPDUROPN2 ---
Progress Note: A&P Assessment and Plan (1) Left ureteral stone: Code(s): N20.1 - Calculus of ureter Status: Acute Assessment and Plan: Will plan to do ureteroscopy with left ureteral stone extraction as an outpatient after infection is cleared and a repeat urine culture is negative. (2) Urinary tract infection: Code(s): N39.0 - Urinary tract infection, site not specified Status: Acute Assessment and Plan: Continue IV antibiotics, awaiting culture results and sensitivity. Ok to remove alfredo and do a voiding trial. (3) Sepsis: Code(s): A41.9 - Sepsis, unspecified organism Status: Acute Subjective Subjective Date/Time Seen: 04/14/20 10:44 POD #2 Cystoscopy left stent placement. Patient doing well, anxious to go home, however urine and blood culture sensistivities are still pending. Review of Systems Cardiovascular: Cardiovascular: Denies chest pain Respiratory: Respiratory: Reports no additional respiratory complaints Gastrointestinal: Gastrointestinal: Denies abdominal pain Genitourinary: Genitourinary: Denies hematuria Exam Resp: Effort & Inspection: normal respiratory effort Cardio: Rate: regular rate GI: GI Palp: No Tenderness to palpation present (GI) : General: No CVA tenderness Urinary Catheter: Urinary Catheter: patent and draining and urine clear Extrem: General: no edema Objective Data Vital Signs Vital Signs: Vital Signs - 24 hr 04/13/20 14:00 04/13/20 18:00 04/13/20 22:00 Temperature 98.1 F 98.1 F 97.2 F L Pulse Rate 78 78 78 Respiratory Rate 16 18 20 Blood Pressure 140/81 123/69 139/71 Pulse Oximetry 96 98 98 04/14/20 06:00 Temperature 98.5 F Pulse Rate 76 Respiratory Rate 20 Blood Pressure 141/74 H Pulse Oximetry 97 Intake/Output Intake/Output: Intake & Output 04/11/20 04/12/20 04/13/20 04/14/20 23:59 23:59 23:59 23:59 Intake Total 1900 4690 1106 Output Total 350 2000 1000 Balance 1550 2690 106 Meds/Results Medications: Active Medications Generic Name Dose Route Start Last Admin Trade Name Freq PRN Reason Stop Dose Admin Acetaminophen 650 mg 04/13/20 08:20 Tylenol Tablet PO Q6H PRN Mild Pain (1-3) or Fever Hydrocodone Bitart/Acetaminophen 1 tab 04/13/20 00:49 [place] 7.5-325 Mg PO Q6H PRN pain Clobetasol Propionate 1 applic 04/13/20 09:00 04/14/20 09:44 Temovate 0.05% Cream TOPICAL 1 applic DAILY LUDMILA Administration Enoxaparin Sodium 40 mg 04/13/20 16:40 04/14/20 09:44 Lovenox SUB-Q 40 mg DAILY LUDMILA Administration Famotidine 20 mg 04/12/20 21:00 04/14/20 09:45 Pepcid Iv IV PUSH 20 mg Q12HR LUDMILA Administration Hydromorphone HCl 0.25 mg 04/12/20 14:25 Dilaudid Inj IV PUSH Q5M PRN Pain Piperacillin/Tazobactam/Dextrose 3.375 gm in 50 mls @ 100 mls/hr 04/12/20 18:00 04/14/20 05:04 Zosyn 3.375 Gm/D5w 50ml Pm IVPB 100 mls/hr Q6H LUDMILA Administration Miconazole Nitrate 1 applic 04/13/20 09:00 04/14/20 09:45 Miconazole Nitrate 2% Cream TOPICAL 1 applic DAILY LUDMILA Administration Morphine Sulfate 4 mg 04/12/20 13:32 04/14/20 09:53 Morphine Sulfate Inj IV PUSH 4 mg Q2H PRN Administration Pain Rated 7-10 Ondansetron HCl 4 mg 04/12/20 13:32 Zofran Inj IV PUSH Q4H PRN Nausea Triamcinolone Acetonide 1 applic 04/13/20 09:00 04/14/20 09:46 Kenal[place] 0.1% Cream TOPICAL 1 applic DAILY LUDMILA Administration Radiology Results: ITS Impressions Abdomen/Pelvis CT 04/12/20 11:55 IMPRESSION: 6 x 7 mm obstructing distal left ureteral calculus with moderate left proximal hydroureteronephrosis Retrograde Pyelogram 04/12/20 16:12 IMPRESSION: Fluoroscopy used during XR retrograde pyelo w/stent LT. Labs Labs: Laboratory Results - last 24 hr 04/12/20 04/14/20 04/14/20 12:34 05:10 05:10 WBC 11.0 H RBC 3.51 L Hgb 11.0 L Hct 33.2 L MCV
--- NOTE | 2020-04-14 13:01 | PM.IMPN ---
Progress Note: A&P Assessment and Plan (1) Sepsis: Code(s): A41.9 - Sepsis, unspecified organism Status: Acute Assessment and Plan: Present on admission and supported by fever, tachycardia, neutropenia, and elevated lactic acid level. He received IV fluid rehydration emergency department, with repeat lactic acid level returning to normal. BCx shows growth in aerobic bottle in 1 set only. UCx shows growth of likely colonizers. Repeat BCx today Await sensitivities; tailor antibiotics to sensitivities Continue IV antibiotics for now. (2) Left ureteral stone: Code(s): N20.1 - Calculus of ureter Status: Acute Assessment and Plan: CT shows a 6 x 7 millimeter obstructing distal left ureteral calculus with moderate left proximal hydroureteronephrosis. Status post cystoscopy and left ureteral stent placement per Dr. Rich. 04/12 (3) Hydroureteronephrosis: Code(s): N13.30 - Unspecified hydronephrosis Status: Acute Assessment and Plan: Plan is as detailed above. 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 (5) Psoriatic arthritis: Code(s): L40.50 - Arthropathic psoriasis, unspecified Status: Acute Assessment and Plan: As above, Otezla on hold. Continue topical medications for associated psoriasis. (6) Essential hypertension: Code(s): I10 - Essential (primary) hypertension Status: Acute Assessment and Plan: BP 140s today. Blood pressures are stable but will be monitored closely due to sepsis. His home medications, HCTZ, held at this time (7) Tobacco dependence: Code(s): F17.200 - Nicotine dependence, unspecified, uncomplicated Status: Acute Assessment and Plan: Both he and his smoke, and he feels that they both could quit together. He has not had a cigarette for 4 days due to feeling poorly, and declines the need for nicotine patch. Subjective Date/time seen: 04/14/20 13:01 Interval history: Patient is a 59 yo M with history of psoriatic arthritis, hypertension,and history of previous nephrolithiasis who is here for treatment of sepsis/bacteremia and left ureteral stone/hydroureteronephrosis. Patient is doing okay today. He has back pain from being in bed. He has not had a BM in several days but passing gas. States his urine had been cloudy; no blood. He is anxious to leave. Denies f/c/s,headaches, dizziness, lightheadedness, cp/palpitations, sob/cough, n/v/d/c, abd pain, calf pain/swelling. Review of Systems Review of Systems: All systems reviewed & are unremarkable except as noted in HPI and below Exam Narrative: Exam Narrative: Patient lying supine in bed at time of visit. Nursing in room pulling [place] Const: General: cooperative, comfortable, no acute distress, well developed, alert and awake Nutritional Appearance: well nourished Orientation/consciousness: patient oriented x3 HENMT: Head: normocephalic and atraumatic General nose exam: Normal nares present Face and sinus: face symmetric Mouth: Yes moist mucous membranes Eyes: General: appearance normal, both eyes and all related structures EOM: EOMs intact bilaterally Neck: Neck: trachea midline and supple Resp: Effort & Inspection: normal respiratory effort Auscultation: clear to auscultation bilaterally Cardio: Rate: regular rate Rhythm: regular rhythm Heart sounds: no murmurs GI: Inspection: obesity GI Palp: Yes abdom
[2020-04-14] MEDS: BISACODYL 5 MG TABLET EC PO (16:08)
[2020-04-14 22:00] VITALS: BP 151/83; PULSE 75; RESP 20; TEMP 37.2; O2SAT 96
[2020-04-15 06:00] VITALS: BP 132/80; PULSE 68; RESP 20; TEMP 36.7; O2SAT 96
[2020-04-15 06:28] LABS: Basophils Absolute Auto 0.1 K/mm3 (0.0-0.1); Basophils Percent Auto 0.9 % (0.2-1.2); Eosinophils Absolute Auto 0.2 K/mm3 (0-0.3); Eosinophils Percent Auto 2.5 % (0-4.4); Hematocrit 34.5 % (42.0-52.0); Hemoglobin 11.3 g/dL (14.0-18.0); Immature Granulocyte Absolute 0.09 K/mm3 (0.00-0.031); Immature Granulocyte Percent A 1.1 % (0-0.5); Lymphocytes Absolute Auto 1.54 K/mm3 (0.9-3.2); Mean Corpuscular HGB Conc 32.8 g/dl (32-36); Mean Corpuscular Hemoglobin 31.1 pg (26-34); Mean Platelet Volume 11.1 fl (7.4-10.4); Monocytes Absolute Auto 0.9 K/mm3 (0.1-0.6); Monocytes Percent Auto 10.6 % (2.6-8.5); Neutrophils Absolute Auto 5.7 K/mm3 (1.3-6.7); Neutrophils Percent Auto 66.9 % (45.5-73.1); Platelet Count Result 201 k/mm3 (150-375); Red Blood Count 3.63 M/mm3 (4.6-6.20); Red Cell Distribution Width 13.3 % (11.5-14.5); White Blood Count 8.6 K/mm3 (4.5-10.0)
[2020-04-15 06:34] LABS: Blood Urea Nitrogen 19 mg/dL (9-20); Calcium 8.5 mg/dL (8.4-10.2); Carbon Dioxide 29 mmol/L (22-30); Chloride 104 mmol/L (98-107); Estimated CRCL calculation 91 ml/min; Estimated Glomerular Filt Rate > 60; Glucose 82 mg/dL (75-110); Magnesium 1.8 mg/dL (1.6-2.3); Potassium 3.8 mmol/L (3.4-5.0); Sodium 137 mmol/L (137-145)
[2020-04-15] MEDS: ENOXAPARIN 40 MG/0.4 ML SYRINGE SUB-Q (08:47)
[2020-04-15] MEDS: FAMOTIDINE 20 MG/2 ML VIAL IV PUSH (08:47)
[2020-04-15] MEDS: MICONAZOLE NITRATE 2% CREAM 30 GM TUBE 1 APPLIC TOPICAL (08:48)
[2020-04-15] MEDS: TRIAMCINOLONE ACET 0.1% CREAM 15 GM TUBE 1 APPLIC TOPICAL (08:48)
--- NOTE | 2020-04-15 12:26 | WPDUROPN2 ---
Progress Note: A&P Assessment and Plan (1) Left ureteral stone: Code(s): N20.1 - Calculus of ureter Status: Acute Assessment and Plan: Patient will go home today on antibiotics for 10 days. Blood cultures were positive, susceptible to Augmentin and urine culture was negative. Will plan to do ureteroscopy with left ureteral stone extraction as an outpatient after infection is cleared and a repeat urine culture is negative. Subjective Subjective Date/Time Seen: 04/15/20 12:26 Patient doing well s/p Cystoscpy left stent placement. He is afebrile, minimal to no pain, urinating well without difficulty or pain. Review of Systems Cardiovascular: Cardiovascular: Reports chest pain Respiratory: Respiratory: Reports no additional respiratory complaints Gastrointestinal: Gastrointestinal: Denies abdominal pain Genitourinary: Genitourinary: Denies hematuria, Denies dysuria, Denies flank pain and Denies urinary urgency Exam Resp: Effort & Inspection: normal respiratory effort Cardio: Rate: regular rate GI: GI Palp: No Tenderness to palpation present (GI) : General: Yes no CVA tenderness Extrem: General: no edema Objective Data Vital Signs Vital Signs: Vital Signs - 24 hr 04/14/20 22:00 04/15/20 06:00 Temperature 99.0 F 98.0 F Pulse Rate 75 68 Respiratory Rate 20 20 Blood Pressure 151/83 H 132/80 Pulse Oximetry 96 96 Intake/Output Intake/Output: Intake & Output 04/12/20 04/13/20 04/14/20 04/15/20 23:59 23:59 23:59 23:59 Intake Total 1900 4690 3236 560 Output Total 350 2000 2550 2075 Balance 1550 2690 686 1515 Meds/Results Medications: Active Medications Generic Name Dose Route Start Last Admin Trade Name Freq PRN Reason Stop Dose Admin Acetaminophen 650 mg 04/13/20 08:20 Tylenol Tablet PO Q6H PRN Mild Pain (1-3) or Fever Hydrocodone Bitart/Acetaminophen 1 tab 04/13/20 00:49 04/15/20 08:28 [place] 7.5-325 Mg PO 1 tab Q6H PRN Administration pain 7-10 Clobetasol Propionate 1 applic 04/13/20 09:00 04/15/20 08:47 Temovate 0.05% Cream TOPICAL 1 applic DAILY LUDMILA Administration Enoxaparin Sodium 40 mg 04/13/20 16:40 04/15/20 08:47 Lovenox SUB-Q 40 mg DAILY LUDMILA Administration Famotidine 20 mg 04/12/20 21:00 04/15/20 08:47 Pepcid Iv IV PUSH 20 mg Q12HR LUDMILA Administration Hydromorphone HCl 0.25 mg 04/12/20 14:25 Dilaudid Inj IV PUSH Q5M PRN Pain Piperacillin/Tazobactam/Dextrose 3.375 gm in 50 mls @ 100 mls/hr 04/12/20 18:00 04/15/20 06:40 Zosyn 3.375 Gm/D5w 50ml Pm IVPB Infused Q6H [facility] Infusion Miconazole Nitrate 1 applic 04/13/20 09:00 04/15/20 08:48 Miconazole Nitrate 2% Cream TOPICAL 1 applic DAILY [facility] Administration Morphine Sulfate 4 mg 04/12/20 13:32 04/14/20 09:53 Morphine Sulfate Inj IV PUSH 4 mg Q2H PRN Administration Pain Rated 7-10 Ondansetron HCl 4 mg 04/12/20 13:32 Zofran Inj IV PUSH Q4H PRN Nausea Senna/Docusate Sodium 1 tab 04/14/20 21:00 Senokot S Tablet PO HS [facility] Triamcinolone Acetonide 1 applic 04/13/20 09:00 04/15/20 08:48 Kenalog 0.1% Cream TOPICAL 1 applic DAILY LUDMILA Administration Radiology Results: ITS Impressions Abdomen/Pelvis CT 04/12/20 11:55 IMPRESSION: 6 x 7 mm obstructing distal left ureteral calculus with moderate left proximal hydroureteronephrosis Retrograde Pyelogram 04/12/20 16:12 IMPRESSION: Fluoroscopy used during XR retrograde pyelo w/stent LT. Labs Labs: Laboratory Results - last 24 hr 04/15/20 04/15/20 05:27 05:27 WBC 8.6 RBC 3.63 L Hgb 11.3 L Hct 34.5 L MCV 95.0 MCH 31.1 MCHC 32.8 RDW 13.3 Plt Count 201 MPV 11.1 H Immature Gran % (Auto) 1.1 H Neut % (Auto) 66.9 Lymph % (Auto) 18.0 L [place] % (Auto) 10.6 H Eos % (Auto) 2.5 Baso % (Auto) 0.9 Lymph # (Auto) 1.54 [place] # (Auto) 0.9 H Eos # (Auto)
--- NOTE | 2020-04-16 17:42 | PM.DS ---
DS: Admitting Diagnosis Admitting Diagnosis Admitting Diagnosis: Calculus of ureter DS: Discharge Diagnosis Discharge Diagnosis (1) Sepsis: Code(s): A41.9 - Sepsis, unspecified organism Status: Acute Assessment and Plan: Present on admission and supported by fever, tachycardia, neutropenia, and elevated lactic acid level. He received IV fluid rehydration emergency department, with repeat lactic acid level returning to normal. BCx shows growth of E coli in both bottles sensitive to wall no Gram-negative panel Received 4 days of Zosyn while here and have 10 more days of Augmentin b.i.d. for total 2 weeks treatment (2) Left ureteral stone: Code(s): N20.1 - Calculus of ureter Status: Acute Assessment and Plan: CT shows a 6 x 7 millimeter obstructing distal left ureteral calculus with moderate left proximal hydroureteronephrosis. Status post cystoscopy and left ureteral stent placement per Dr. Rich. 04/12 Will follow-up with urology for probable dilatation and stone extraction within the next 2 weeks (3) Hydroureteronephrosis: Code(s): N13.30 - Unspecified hydronephrosis Status: Acute Assessment and Plan: Plan is as detailed above. (4) Immunocompromised state due to drug therapy: Code(s): Z79.899 - Other senior living (current) drug therapy Status: Acute Assessment and Plan: Pelon currently on hold. (5) Psoriatic arthritis: Code(s): L40.50 - Arthropathic psoriasis, unspecified Status: Acute Assessment and Plan: As above, Otezla on hold. Continue topical medications for associated psoriasis. (6) Essential hypertension: Code(s): I10 - Essential (primary) hypertension Status: Acute Assessment and Plan: BP 140s today. Blood pressures are stable but will be monitored closely due to sepsis. His home medications, HCTZ, held at this time (7) Tobacco dependence: Code(s): F17.200 - Nicotine dependence, unspecified, uncomplicated Status: Acute Assessment and Plan: Both he and his smoke, and he feels that they both could quit together. He has not had a cigarette for 4 days due to feeling poorly, and declined the need for nicotine patch. DS: Summary Hospital Course Hospital Course: Admitted with sepsis and urinary tract infection complicated by left ureteral stone. Taken to OR had stent placed in left ureter . Blood cultures grew E coli pansensitive but urine cultures were no growth. Had 4 days of IV Zosyn here and will have 10 more days of Augmentin b.i.d. has now outpatient follow-up with urology for stent and stone extraction Creatinine 1.0 and white count cell count 8.6 day of discharge Time Spent with Patient Time attestation: Total time spent providing and/or coordinating discharge services: 35 minutes Exam Narrative: Exam Narrative: Condition on discharge Blood pressure 132/80 pulse 68 saturating 97% on room air afebrile Lungs clear No posterior CVA tenderness Abdomen is soft nontender Extremities without edema Neuro alert cooperative, no discomfort taking diet well DS: Data Data Completed and Pending Labs on day of discharge: Preliminary micro results at discharge 04/14/20 07:47 Blood Culture - Preliminary Blood 04/14/20 07:47 Blood Culture - Preliminary Blood 04/12/20 12:16 Blood Culture - Preliminary Blood Escherichia Coli 04/12/20 12:46 Blood Culture - Preliminary Blood Escherichia Coli Discharge Plan Discharge Attending physician on discharge: Jose L Sin
== END 2020-04-15 13:20 | disposition home or self-care (01) ==
LOC: ANHED 13:39 → ANHSURGERY 13:50 → ANH3MEDSUR 15:37 → ANHSURGERY 04-13 16:11 → ANH3MEDSUR 04-14 06:48
PROVIDERS: Emergency Medicine Emergency Medical Services; Physician Assistant; Urology; Admitting Provider Family Medicine; Emergency Provider Emergency Medicine; PCP Internal Medicine; Visit Provider Internal Medicine
PROC: (CPT 52352; principal; 2020-04-12 15:30)
DX: A41.51 Sepsis due to Escherichia coli [E. coli]; N13.2 Hydronephrosis with renal and ureteral calculous obstruction; R82.90 Unspecified abnormal findings in urine; I10 Essential (primary) hypertension; F17.210 Nicotine dependence, cigarettes, uncomplicated; L40.50 Arthropathic psoriasis, unspecified; Z79.82 Long term (current) use of aspirin; Z79.899 Other long term (current) drug therapy
CPT/HCPCS: 52332; 36415; 74176; 74420; 80048; 80053; 81001; 83605; 83735; 84484; 85025; 85055; 85610; 85730; 86140; 87040; 87077; 87086; 87088; 87186; 96365; 96367; 96375; 99285; A9270; C1769; C1894; C2617; G0378; J0131; J1100; J1650; J2250; J2270; J2370; J2405; J2543; J2704; J3010; J3360; J7030; J7120; Q9966

== ENCOUNTER 2020-04-20 00:19 | Outpatient (CLI) | payer OTHER, SELFPAY ==
[2020-04-20 18:58] LABS: SARS-CoV-2 RNA PCR Negative
== END 2020-04-20 00:20 | disposition home or self-care (01) ==
LOC: ANHCOVIDDT 00:19
PROVIDERS: PCP Internal Medicine; Visit Provider Urology
DX: Z01.818 Encounter for other preprocedural examination (principal); Z11.59 Encounter for screening for other viral diseases
CPT/HCPCS: 87635; C9803; U0003

== ENCOUNTER 2020-04-22 01:55 | Day surgery (SDC) | payer OTHER, SELFPAY ==
[2020-04-19 09:44] VITALS: BMI 29.8
--- NOTE | 2020-04-20 07:26 | PM.HPGS ---
History of Present Illness History of Present Illness Consent: Risks, benefits, and alternatives have been discussed and questions answered. Patient agrees to proceed with procedure. Chief complaint: Ureteral Stone Narrative: Cody Holt Jr. is a 59 year old male Was in the emergency room on 04/12/2020 where imaging demonstrated a 6 mm left proximal ureteral stone. He underwent cystoscopy with ureteral stent placement and presents now for and endoscopic stone manipulation/ extraction. Has a history of prior ureter urolithiasis several years ago, requiring a similar procedure. Review of Systems Cardiovascular: Cardiovascular: Denies chest pain, Denies lightheadedness, Denies palpitations and Denies dyspnea Respiratory: Respiratory: Denies dyspnea Gastrointestinal: Gastrointestinal: Denies diarrhea, Denies nausea and Denies vomiting Genitourinary: Genitourinary: Denies hematuria and Denies dysuria Endocrine: Endocrine: Denies palpitations PMFSH Past Medical History Medical History Essential hypertension History of kidney stones Immunocompromised state due to drug therapy Patient takes Otezla for psoriatic arthritis. Psoriasis Psoriasis Psoriatic arthritis Tobacco dependence Surgical History Surgical History History of ankle surgery ORIF left ankle fracture. History of repair of aneurysm of abdominal aorta using endovascular stent graft CT of the abdomen and pelvis take 04/12/2020 showed an up to 7.1 centimeter abdominal aortic aneurysm with endovascular aorto-biiliac stent. Status post cystoscopy with ureteral stent placement (~08/2007) Family History Family History Mother Cancer of kidney Sibling Congestive heart failure Father Patient's father is in good health Sibling Patient's sister is in good health Patient's sister is Mother Family history of malignant neoplasm Patient's mother is Social History Social History Social History: The patient lives in [place], [place] with his . He has no children. 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 He has smoked between 0.5 and 1 packs of cigarettes per day for at least 30 years. He denies alcohol and illicit substance abuse. He designates his , Aundrea, as his surrogate decision maker and he wishes to be a full code. Smoking packs per day: 0.5 Smoking cigarettes per day: 10.0 Years smoked: 33 Smoking pack-years: 16.50 Smoking status: Current every day smoker Tobacco type: cigarettes Second hand tobacco smoke exposure: Yes Alcohol intake: never Substance use: never Gender identity (if verbalized by the patient): Male Spiritual care concerns: No Meds Home Medications and Allergies Home Medications Medication Instructions Recorded Confirmed Type hydrochlorothiazide 25 mg tablet 25 mg PO DAILY 10/21/19 04/19/20 History ketoconazole 2 % topical cream 1 applic TOPICAL BID #30 gm 11/13/19 04/19/20 Rx clobetasol 0.05 % topical cream 1 applic TOPICAL DAILY #30 gm 02/03/20 04/19/20 Rx triamcinolone acetonide 0.1 % 1 applic TOPICAL BID #30 gm 02/03/20 04/19/20 Rx topical cream calcipotriene 0.005 % topical 1 applic TOPICAL DAILY #60 gm 02/05/20 04/19/20 Rx ointment amoxicillin-pot clavulanate 1 tablet PO Q12H #20 tablet 04/15/20 04/19/20 Rx [Augmentin] aspirin 81 mg PO DAILY 04/19/20 04/19/20 History hydrocodone-acetaminophen 1 tablet PO Q6H PRN 04/19/20 04/19/20 History multivitamin 1 tablet PO DAILY 04/19/20 04/19/20 History plant stanol colin [Cholest Off] 1,000 mg PO BID 04/19/20 04/19/20 History vitamins A,C,R-yfyy-migwws 1 tablet PO DAILY 04/19/20 04/19/20 History [PreserVision AREDS] Allergies
[2020-04-22] VITALS (8 sets, daily range): BP systolic 129–157; BP diastolic 78–88; PULSE 67–78; RESP 10–25; TEMP 36.1–36.2; O2SAT 98–100
--- NOTE | ~2020-04-22 | XR_ITS ---
EXAMINATION: XR stent kub - surgery DATE: 04/22/2020 10:18 INDICATION: Internal ureteral stent exchange TECHNIQUE: Fluoroscopic images from a left internal ureteral stent placement are submitted for review . 21 seconds of fluoroscopy time. FINDINGS: There is a left double-J internal ureteral stent projecting in expected position, with proximal [place] loop at the level of the renal pelvis and distal loop in the pelvis within the bladder lumen. IMPRESSION: 1. Left internal ureteral stent placement. Please refer to real-time procedural findings for detail s. Reviewed, dictated and finalized at location A. IMPRESSION: 1. Left internal ureteral stent placement. Please refer to real-time procedur al findings for details.
--- NOTE | 2020-04-22 06:55 | WPDHPUPDATE1 ---
History and Physical Update Update Date/Time: 04/22/20 06:55 History and Physical has been reviewed, including an updated exam of the patient. There are NO changes in the patient's condition. Risks, benefits, and alternatives have been discussed and questions answered. Patient agrees to proceed with procedure.
[2020-04-22] MEDS: LACTATED RINGERS 1,000 ML 30 ML IV CONT (08:15)
--- NOTE | 2020-04-22 08:40 | WPDANESEPPF ---
Anes - Initial Pre Proc Eval Procedure: Operation Date: 04/22/20 09:30 Proposed Procedures p Cystoscopy with Left Ureteroscopy, Left Retrograde Pyelogram, Left Stent Placement - Marques Grey MD s Holmium Laser Procedure - Marques Grey MD Date/Time: 04/22/20 08:40 Surgeon: Marques Grey MD Pre Op Diagnosis: Ureteral Stone Patient Data Age: 59 Gender: M Height: 6 ft Weight: 104.3 kg Last Vital Signs Temp 36.1 C L 04/22/20 07:42 Pulse 77 04/22/20 07:42 Resp 18 04/22/20 07:42 BP 131/84 04/22/20 07:42 Pulse Ox 100 04/22/20 07:42 Allergies Allergy/AdvReac Type Severity Reaction Status Date / Time oxycodone AdvReac NAUSEA/VOMI Verified 04/22/20 08:31 TING Home Medications Medication Instructions Recorded Confirmed Type hydrochlorothiazide 25 mg tablet 25 mg PO DAILY 10/21/19 04/22/20 History ketoconazole 2 % topical cream 1 applic TOPICAL BID #30 gm 11/13/19 04/22/20 Rx clobetasol 0.05 % topical cream 1 applic TOPICAL DAILY #30 gm 02/03/20 04/22/20 Rx triamcinolone acetonide 0.1 % 1 applic TOPICAL BID #30 gm 02/03/20 04/22/20 Rx topical cream calcipotriene 0.005 % topical 1 applic TOPICAL DAILY #60 gm 02/05/20 04/22/20 Rx ointment amoxicillin-pot clavulanate 1 tablet PO Q12H #20 tablet 04/15/20 04/22/20 Rx [Augmentin] aspirin 81 mg PO DAILY 04/19/20 04/22/20 History hydrocodone-acetaminophen 1 tablet PO Q6H PRN 04/19/20 04/22/20 History multivitamin 1 tablet PO DAILY 04/19/20 04/22/20 History plant stanol colin [Cholest Off] 1,000 mg PO BID 04/19/20 04/22/20 History vitamins A,C,P-bekv-urpyuv 1 tablet PO DAILY 04/19/20 04/22/20 History [PreserVision AREDS] Patient hx anesthesia problems: none Family hx anesthesia problems: none PMFSH Past Medical History Medical History Essential hypertension History of kidney stones Immunocompromised state due to drug therapy Patient takes Otezla for psoriatic arthritis. Psoriasis Psoriasis Psoriatic arthritis Tobacco dependence Surgical History Surgical History History of ankle surgery ORIF left ankle fracture. History of repair of aneurysm of abdominal aorta using endovascular stent graft CT of the abdomen and pelvis take 04/12/2020 showed an up to 7.1 centimeter abdominal aortic aneurysm with endovascular aorto-biiliac stent. Status post cystoscopy with ureteral stent placement (~08/2007) Family History Family History Mother Cancer of kidney Sibling Congestive heart failure Father Patient's father is in good health Sibling Patient's sister is in good health Patient's sister is Mother Family history of malignant neoplasm Patient's mother is Social History Social History Social History: The patient lives in [place], [place] with his . He has no children. 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 He has smoked between 0.5 and 1 packs of cigarettes per day for at least 30 years. He denies alcohol and illicit substance abuse. He designates his , Aundrea, as his surrogate decision maker and he wishes to be a full code. Smoking packs per day: 0.5 Smoking cigarettes per day: 10.0 Years smoked: 33 Smoking pack-years: 16.50 Smoking status: Current every day smoker Tobacco type: cigarettes Second hand tobacco smoke exposure: Yes Alcohol intake: never Substance use: never Gender identity (if verbalized by the patient): Male Spiritual care concerns: No Anes - Eval Final PreProcedure Day of Procedure 04/22/20 08:40 Patient weight: obese Heart: regular rate and rhythm Lungs: decreased breath sounds Airway: Mallampati scale class II Neurological: alert an
[2020-04-22] MEDS: ceFAZolin 2 GM/D5W 50 ML 2 GM/50 ML BAG IVPB (09:09)
--- NOTE | 2020-04-22 09:49 | PM.PROC ---
Procedure Note - Detailed Date of procedure: 04/22/20 Pre-op diagnosis: Ureteral Stone Post-op diagnosis: same Procedure performed: 1. Cystoscopy with left ureteral stent removal 2. Left ureteroscopy with laser lithotripsy and stone extraction 3. Left ureteral stent replacement Description of procedure: The patient was brought to the operative suite where he is prepped and draped in a routine sterile fashion while in the dorsal lithotomy position after the uneventful induction of a general LMA anesthetic. A 19F rigid cystoscope was placed in the bladder. There are no urethral strictures. His prostatic urethra measures, approximately, 1.5cm with no median lobe enlargement. The bladder mucosa was endoscopically normal without hyperemia or neoplasm. There was a single, orthotopic ureteral orifice bilaterally. I grasped the indwelling stent and a 0.035 glidewire was advanced into the left renal pelvis under fluoroscopy. The distal ureter was dilated with an 8F/10F ureteral dilator. Ureteroscopy was undertaken with a short tapered semi-rigid ureteroscope. his 7 mm left mid ureteral stone is unchanged in position and is quite impacted with utryrtsl edema. With ureteroscopy I fractured the stone into smaller pieces using a 273 micron Holmium laser fiber with the Holmium laser. I was able to then extract the stone pieces using a 1.9F Escape, disposable stone basket. Due to the extent of this manipulation I did replace a 4.8F double-J ureteral stent. The proximal coil of the stent was confirmed to be in the renal pelvis and the distal coil in the bladder. The patient's bladder was emptied and he was taken to the recovery room having tolerated this procedure well. Surgeon: Marques Grey MD Estimated blood loss (mL): 0 Drains: Yes (4.8F left ureteral stent) Packing: No Pathology: yes Complications: No immediate complications Condition: stable Disposition: PACU
--- NOTE | 2020-04-22 11:12 | SUR.PHASEII ---
1110 spoke with spouse and updated, she is on her way up here
== END 2020-04-22 11:51 | disposition home or self-care (01) ==
PROVIDERS: PCP Internal Medicine; Visit Provider Urology
PROC: (CPT 52352; principal; 2020-04-22 09:30)
PROC: (CPT 52356; 2020-04-22 09:30)
DX: N20.1 Calculus of ureter (principal); I10 Essential (primary) hypertension; L40.50 Arthropathic psoriasis, unspecified; F17.210 Nicotine dependence, cigarettes, uncomplicated; Z79.82 Long term (current) use of aspirin; E66.9 Obesity, unspecified; Z68.31 Body mass index [BMI] 31.0-31.9, adult
CPT/HCPCS: 52356; 82365; 88300; A9270; C1769; C2617; J0690; J1100; J2250; J2405; J2704; J3010; J7120; Q9966

== ENCOUNTER 2024-04-28 18:51 | Emergency (ER) | payer OTHER, SELFPAY ==
--- NOTE | ~2024-04-28 | CT_ITS ---
EXAMINATION: CT cervical spine wo con DATE: 04/28/2024 20:28 INDICATION: head injury s/p syncope TECHNIQUE: Computed tomography (CT) of the cervical spine was performed without intravenous contrast. Automated exposure control and iterative reconstruction technique were employed. The dose-length pro duct was 559.91 mGy-cm. COMPARISON: None. FINDINGS: Vertebral Body Alignment: Intact. Craniocervical and atlantoaxial alignment: Moderate degenerative change. Alignment intact. Osseous structures/fracture: No evidence of a lytic or blastic process in the visualized spine. No e vidence of acute fracture. Chronic appearing mild height loss at C5 and C6. Cervical soft tissues: The paraspinal soft tissues planes are maintained. Degenerative changes: Degenerative changes, without severe neural foraminal or central canal narrowin g. IMPRESSION: No acute fracture or traumatic malalignment in the cervical spine. Reviewed, dictated and finalized at location K.
--- NOTE | ~2024-04-28 | XR_ITS ---
EXAMINATION: XR chest 1V Exam Date/Time: 04/28/2024 20:10 CDT HISTORY: syncope Comparison: 12/20/2018. RESULT: Lines, tubes, and devices: None. Lungs and pleura: Clear. Cardiomediastinal silhouette: Stable. Other: No acute osseous or upper abdominal finding. IMPRESSION: No acute cardiopulmonary process. Reviewed, dictated and finalized at location K.
--- NOTE | ~2024-04-28 | CT_ITS ---
EXAMINATION: CT brain wo con DATE: 04/28/2024 20:28 INDICATION: syncope, head injury . TECHNIQUE: Computed tomography (CT) of the head was performed without intravenous contrast. The mA wa s adjusted according to patient size. Iterative reconstruction technique was employed. The dose-lengt h product was 605.33 mGy-cm. COMPARISON: None. FINDINGS: No acute intracranial hemorrhage or extra-axial fluid collection. No hydrocephalus, mass, or herniation. No acute ischemic infarct. Unremarkable dural venous sinus attenuation. No acute osseous abnormality. Right frontal scalp swelling/laceration. Right maxillary and ethmoid mucosal thickening, the remaining aerated spaces are clear. Moderate atrophy and chronic white matter change. Atherosclerotic intracranial calcification. IMPRESSION: No acute intracranial process. Reviewed, dictated and finalized at location K.
--- NOTE | ~2024-04-28 | XR_ITS ---
EXAM: XR hand RT min 3V DATE: 04/28/2024 20:21 HISTORY: hand injury s/p syncope . COMPARISON: 12/20/2018. FINDINGS: Normal mineralization. Old ulnar styloid fragment. No acute fracture or dislocation. No ly tic or blastic lesion. Moderate scattered osteoarthritic changes. No erosion or periosteal change. So ft tissues within normal limits. IMPRESSION: No acute osseous finding in the right hand. Reviewed, dictated and finalized at location K.
[2024-04-28 18:48] VITALS: PULSE 84; RESP 20; TEMP 36.5; O2SAT 97
--- NOTE | 2024-04-28 18:56 | ECG_ITS ---
Test Date: 2024-04-28 18:57:49 Measurements Intervals [place] Rate: 83 P: 66 TX: 181 QRS: 39 QRSD: 110 T: 73 QT: 381 QTc: 448 Interpretive Statements SINUS RHYTHM POSSIBLE ANTERIOR MYOCARDIAL INFARCTION , OF INDETERMINATE AGE [30 ms Q WAVE IN V3/V4, OR R < 0.2 mV IN V4] No previous ECG available for comparison Electronically Signed On 04-29-2024 12:01:56 CDT by Rupesh Monteiro M.D.
[2024-04-28 19:16] VITALS: BP 159/86; PULSE 84; RESP 20; O2SAT 97
[2024-04-28 19:28] LABS: Basophils Absolute Auto 0.1 K/mm3 (0.0-0.1); Basophils Percent Auto 0.7 % (0.2-1.2); Eosinophils Absolute Auto 0.3 K/mm3 (0-0.3); Eosinophils Percent Auto 3.5 % (0-4.4); Hematocrit 40.8 % (42.0-52.0); Hemoglobin 13.4 g/dL (14.0-18.0); Immature Granulocyte Absolute 0.03 K/mm3 (0.00-0.031); Immature Granulocyte Percent A 0.3 % (0-0.5); Lymphocytes Absolute Auto 1.05 K/mm3 (0.9-3.2); Lymphocytes Percent Auto 11.5 % (18.3-44.2); Mean Corpuscular HGB Conc 32.8 g/dl (32-36); Mean Corpuscular Hemoglobin 32.2 pg (26-34); Mean Corpuscular Volume 98.1 fl (80-100); Mean Platelet Volume 9.8 fl (7.4-10.4); Monocytes Absolute Auto 0.5 K/mm3 (0.1-0.6); Neutrophils Absolute Auto 7.2 K/mm3 (1.3-6.7); Platelet Count Result 307 k/mm3 (150-375); Red Blood Count 4.16 M/mm3 (4.6-6.20); Red Cell Distribution Width 12.4 % (11.5-14.5); White Blood Count 9.2 K/mm3 (4.5-10.0)
[2024-04-28 19:46] VITALS: BP 162/87; PULSE 81; RESP 20; O2SAT 96
[2024-04-28 19:55] LABS: Alanine Aminotransferase 22 U/L (6-50); Albumin Level 4.1 g/dL (3.5-5.1); Alkaline Phosphatase 100 U/L (38-126); Anion Gap 8 mmol/L (4-12); Aspartate Amino Transferase 24 U/L (17-59); Bilirubin,Total 0.4 mg/dL (0.2-1.3); Blood Urea Nitrogen 19 mg/dL (9-20); Calcium 8.9 mg/dL (8.4-10.2); Carbon Dioxide 27 mmol/L (22-30); Chloride 105 mmol/L (98-107); Estimated CRCL calculation 88 ml/min; Estimated Glomerular Filt Rate > 60; Glucose 169 mg/dL (65-110); Potassium 3.4 mmol/L (3.4-5.0); Sodium 140 mmol/L (137-145)
[2024-04-28] MEDS: SODIUM CHLORIDE 0.9% IV 1,000 ML 999 ML IV CONT (20:06)
[2024-04-28] MEDS: TETANUS,DIPHTHERIA,AC PERTUSSIS ADULT (0.5 ML) BOOSTRIX IM (20:07)
[2024-04-28 20:37] VITALS: BP 170/95; PULSE 85; RESP 19; O2SAT 97
--- NOTE | 2024-04-28 20:40 | PC.NURSE ---
Addendum entered by Isabell Brizuela RN 04/28/24 20:57: made aware. Original Note: Pt requesting to speak with doctor regarding orders. Refusing to give urine sample and have another blood test.
[2024-04-28 20:45] LABS: Magnesium 2.1 mg/dL (1.6-2.3)
--- NOTE | 2024-04-28 20:57 | ED.GENADULT ---
HPI - General Adult General Chief complaint: Syncope Stated complaint: FALL, ?SYNCOPAL EPISODE, LAC TO HEAD Time Seen by Provider: 04/28/24 19:48 History of Present Illness HPI narrative: patient is a 63-year-old gentleman who presents emergency department with chief complaint of syncopal episode. Patient reports he was drinking some 7 up and started to choke and instead of trying to spit the 7up out he tried to make it to the trash can in the kitchen. the patient states he was unable to make it to the kitchen in time and passed out. Patient reports he struck his head and face patient reports that he also struck his right hand. Patient reports that currently he feels much better denies chest pain denies shortness of breath reports he is unsure of his last tetanus status Related Data Home Medications Medication Instructions Recorded Confirmed aspirin 81 mg tablet,delayed 81 mg PO DAILY 04/19/20 03/10/24 release multivitamin 1 tablet PO DAILY 04/19/20 03/10/24 vitamins A,C,W-wizo-wdswyq 2,148 1 tablet PO DAILY 04/19/20 03/10/24 mcg-113 mg-45 mg-17.4 mg tablet (PreserVision AREDS) Allergies Allergy/AdvReac Type Severity Reaction Status Date / Time No Known Allergies Allergy Verified 03/10/24 16:14 Review of Systems Review of Systems: A 10 system review of systems was completed on the patient and is negative except for what is stated in the HPI. Nursing and ancillary documentation was reviewed. [facility] Past Medical History Medical History Essential hypertension History of kidney stones Immunocompromised state due to drug therapy Patient takes Otezla for psoriatic arthritis. Psoriatic arthritis Tobacco dependence Surgical History Surgical History History of ankle surgery ORIF left ankle fracture. History of repair of aneurysm of abdominal aorta using endovascular stent graft CT of the abdomen and pelvis take 04/12/2020 showed an up to 7.1 centimeter abdominal aortic aneurysm with endovascular aorto-biiliac stent. Status post cystoscopy with ureteral stent placement (~08/2007) Family History Family History Mother Cancer of kidney Sibling Congestive heart failure Father Patient's father is in good health Sibling Patient's sister is in good health Patient's sister is Mother Family history of malignant neoplasm Patient's mother is Social History Social History Social History: The patient lives in [place], [place] with his . He has no children. 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 He has smoked between 0.5 and 1 packs of cigarettes per day for at least 30 years. He denies alcohol and illicit substance abuse. He designates his , Aundrea, as his surrogate decision maker and he wishes to be a full code. Smoking packs per day: 0.5 Smoking cigarettes per day: 10.0 Years smoked: 33 Smoking pack-years: 16.50 Smoking status: Current every day smoker Tobacco type: cigarettes Second hand tobacco smoke exposure: Yes Alcohol intake: never Substance use: never Current Housing: Decline to Answer Concerned About Future Housing: Decline to Answer Difficulty Paying Gas/Electric Bills: Decline to Answer Difficulty Paying for Meds: Decline to Answer Currently Unemployed: Decline to Answer Education: Decline to Answer Difficulty w/ Childcare or Family Care: Decline to Answer Gender identity (if verbalized by the patient): Male Spiritual care concerns: No Exam Narrative: GENERAL: Well-appearing, well-nourished, and in no acute distress. HEAD: Normocephalic, 2 cm laceration of forehead non gaping. EYES: PERRLA and EOMI. ENT:
[2024-04-28 20:58] LABS: Troponin I < 0.012 ng/mL (0.000-0.034)
--- NOTE | 2024-04-28 21:24 | PC.NURSE ---
Pt ambulated with steady gate per mick lucero
[2024-04-28 21:35] VITALS: BP 154/99; PULSE 80; RESP 18; O2SAT 97
== END 2024-04-28 21:39 | disposition home or self-care (01) ==
PROVIDERS: Physician Assistant; Emergency Provider Emergency Medicine; PCP Family Medicine
DX: R55 Syncope and collapse (principal); S01.81XA Laceration without foreign body of other part of head, initial encounter; S61.411A Laceration without foreign body of right hand, initial encounter; F17.210 Nicotine dependence, cigarettes, uncomplicated; I10 Essential (primary) hypertension; Z87.442 Personal history of urinary calculi; W19.XXXA Unspecified fall, initial encounter; Z23 Encounter for immunization
CPT/HCPCS: 12011; 36415; 70450; 71045; 72125; 73130; 80053; 83735; 84484; 85025; 90471; 90715; 93005; 96360; 99284; J7030